=== PATIENT | female | born 1995 | race Caucasian/White ===

== ENCOUNTER 2021-07-26 09:11 | Emergency (ER) | payer OTHER ==
[2021-07-26 09:34] VITALS: BP 108/70; PULSE 88; TEMP 98; BMI 23.9
[2021-07-26] MEDS ORDERED: SODIUM CHLORIDE 1,000 ML IV STA (10:12)
[2021-07-26 10:46] LABS: BASO % 0.3 % (0-2.0); EOS % 1.2 % (0-4.5); HEMATOCRIT 49.2 % (32.4-45.2); HEMOGLOBIN 16.9 GM/dL (10.7-15.3); LYMPH % 12.6 % (8-40); MCH 30.3 pg (25.7-33.7); MCHC 34.4 g/dl (32.0-36.0); MEAN CELL VOLUME 88.1 fl (80-96); MEAN PLT VOLUME 7.5 fl (7.5-11.1); MONO % 7.9 % (3.8-10.2); PLATELET COUNT 216 10^3/uL (134-434); RBC 5.59 M/mm3 (3.60-5.2); RDW 13.2 % (11.6-15.6)
[2021-07-26 10:50] LABS: EPI CELLS >36 /uL (0-25.1); HYALINE CASTS 5 /uL (0-3.1); PH,URINE 5.5 (5.0-8.0); URINE APPEARANCE CLOUDY; URINE BACTERIA 675 /uL (0-1359); URINE BILIRUBIN NEGATIVE (NEGATIVE); URINE COLOR YELLOW; URINE GLUCOSE (UA) NEGATIVE (NEGATIVE); URINE KETONE 1+ (NEGATIVE); URINE LEUK ESTERASE TRACE (NEGATIVE); URINE NITRITE NEGATIVE (NEGATIVE); URINE PROTEIN 1+ (NEGATIVE); URINE RBC 37 /uL (0-23.9); URINE UROBILINOGEN 0.2 mg/dL (0.2-1.0); URINE WBC 52 /uL (0-25.8)
[2021-07-26 10:56] LABS: HCG,QUALITATIVE URINE Negative
[2021-07-26 11:05] LABS: CALCIUM 9.5 mg/dL (8.5-10.1)
[2021-07-26 11:06] LABS: ALBUMIN 4.9 g/dl (3.4-5.0); BLOOD UREA NITROGEN 12.4 mg/dL (7-18)
[2021-07-26 11:09] LABS: CREATININE 0.9 mg/dL (0.55-1.3)
[2021-07-26 11:11] LABS: BILIRUBIN,TOTAL 1.2 mg/dL (0.2-1); TOT PROT 8.8 g/dl (6.4-8.2)
[2021-07-26] MEDS ORDERED: DOXYCYCLINE HYCLATE 100 MG CAPSULE PO ONE ×3 (13:38→16:18)
[2021-07-26] MEDS ORDERED: KETOROLAC TROMETHAMINE 30 MG/1 ML VIAL IVPUSH ONE (15:57)
[2021-07-26] MEDS ORDERED: KETOROLAC TROMETHAMINE 30 MG/1 ML VIAL ONE (16:18)
== END 2021-07-26 16:42 | disposition home or self-care (01) ==
LOC: JER 09:11
PROC: 3E0337Z Introduction of Electrolytic and Water Balance Substance into Peripheral Vein, Percutaneous Approach (ICD-10-PCS; principal; 2021-07-26)
DX: N73.9 Female pelvic inflammatory disease, unspecified (principal)
CPT/HCPCS: 36415; 74177-TC; 80053; 81003; 84703; 85025; 87070; 87205; 87491; 87591; 99285-25; Q9967

== ENCOUNTER 2022-11-29 22:28 | Emergency (ER) | payer OTHER ==
[2022-11-29 22:36] VITALS: RESP 18; TEMP 98.6; BMI 27.9
[2022-11-30 00:03] LABS: EOS % 5.5 % (0-4.5); HEMOGLOBIN 13.9 GM/dL (10.7-15.3); LYMPH % 29.8 % (8-40); MCH 30.6 pg (25.7-33.7); MCHC 34.8 g/dl (32.0-36.0); MONO % 6.8 % (3.8-10.2); NEUT % 56.9 % (42.8-82.8); PLATELET COUNT 243 10^3/uL (134-434); RBC 4.54 M/mm3 (3.60-5.2); RDW 13.4 % (11.6-15.6); WHITE BLOOD COUNT 6.8 K/mm3 (4.0-10.0)
[2022-11-30 00:20] LABS: PH,URINE 6.5 (5.0-8.0); URINE APPEARANCE CLEAR; URINE BILIRUBIN NEGATIVE (NEGATIVE); URINE COLOR YELLOW; URINE GLUCOSE (UA) NEGATIVE (NEGATIVE); URINE KETONE NEGATIVE (NEGATIVE); URINE LEUK ESTERASE NEGATIVE (NEGATIVE); URINE NITRITE NEGATIVE (NEGATIVE); URINE PROTEIN NEGATIVE (NEGATIVE); URINE UROBILINOGEN 0.2 mg/dL (0.2-1.0)
[2022-11-30 00:30] LABS: POTASSIUM 3.5 mmol/L (3.5-5.1)
[2022-11-30 00:32] LABS: CALCIUM 8.6 mg/dL (8.5-10.1)
[2022-11-30 00:33] LABS: ALBUMIN 3.4 g/dl (3.4-5.0); BLOOD UREA NITROGEN 6.4 mg/dL (7-18)
[2022-11-30 00:36] LABS: CREATININE 0.4 mg/dL (0.55-1.3)
[2022-11-30 00:38] LABS: BILIRUBIN,TOTAL 0.3 mg/dL (0.2-1); TOT PROT 6.8 g/dl (6.4-8.2)
[2022-11-30] MEDS ORDERED: AZITHROMYCIN 500 MG TABLET PO ONE (04:09)
[2022-11-30 04:11] VITALS: BP 98/62; PULSE 78
[2022-11-30] MEDS ORDERED: AZITHROMYCIN 500 MG TABLET ONE (04:29)
[2022-11-30] MEDS ORDERED: cefTRIAXone SODIUM 1 GM VIAL ONE (04:29)
== END 2022-11-30 04:57 | disposition home or self-care (01) ==
LOC: JER 22:28
DX: O26.891 Other specified pregnancy related conditions, first trimester (principal); R10.30 Lower abdominal pain, unspecified; N89.8 Other specified noninflammatory disorders of vagina; R10.2 Pelvic and perineal pain; M25.551 Pain in right hip; Z3A.13 13 weeks gestation of pregnancy
CPT/HCPCS: 36415; 76830-TC; 80053; 81003; 84702; 85025; 87081; 87086; 87491; 87591; 99284-25

== ENCOUNTER 2023-06-01 05:40 | Inpatient (IN) | payer OTHER ==
[2023-06-01] MEDS: ELECTROLYTE-148 SOLN 1,000 ML IV SCH (06:30)
[2023-06-01 06:35] LABS: BASO % 0.5 % (0-2.0); EOS % 2.7 % (0-4.5); HEMATOCRIT 40.4 % (32.4-45.2); HEMOGLOBIN 13.5 GM/dL (10.7-15.3); LYMPH % 23.6 % (8-40); MCH 29.2 pg (25.7-33.7); MCHC 33.3 g/dl (32.0-36.0); MEAN CELL VOLUME 87.7 fl (80-96); MEAN PLT VOLUME 8.3 fl (7.5-11.1); MONO % 9.8 % (3.8-10.2); NEUT % 63.4 % (42.8-82.8); PLATELET COUNT 250 10^3/uL (134-434); RBC 4.61 M/mm3 (3.60-5.2); RDW 13.9 % (11.6-15.6); WHITE BLOOD COUNT 10.3 K/mm3 (4.0-10.0)
[2023-06-01 06:39] VITALS: BMI 34.5
[2023-06-01 06:51] LABS: INR 1.01 (0.83-1.09); PROTHROMBIN TIME (PATIENT) 11.7 SEC (9.7-13.0)
[2023-06-01 06:54] LABS: ACTIVATED PTT 28.5 SECONDS (25.2-36.5)
[2023-06-01] MEDS ORDERED: OXYTOCIN 20 UNITS in 0.9% NS 20 UNIT/1,000 ML INFUS.BAG IV ONE (07:02)
[2023-06-01] MEDS: OXYTOCIN 20 UNITS in 0.9% NS 20 UNIT/1,000 ML INFUS.BAG IV SCH (07:20)
[2023-06-01 07:24] LABS: POTASSIUM 4.2 mmol/L (3.5-5.1)
[2023-06-01 07:25] LABS: CALCIUM 8.8 mg/dL (8.5-10.1)
[2023-06-01 07:29] LABS: CREATININE 0.6 mg/dL (0.55-1.3)
[2023-06-01] MEDS: MISOPROSTOL 200 MCG TABLET PR STA (07:30)
[2023-06-01] MEDS ORDERED: MISOPROSTOL 200 MCG TABLET ONE (07:35)
[2023-06-01] MEDS ORDERED: oxyCODONE HCL 5 MG TABLET ONE (07:37)
[2023-06-01] MEDS: oxyCODONE HCL 5 MG TABLET PO PRN (07:39)
[2023-06-01] MEDS: METHYLERGONOVINE MALEATE 0.2 MG/1 ML AMP IM PRN (07:42)
[2023-06-01] MEDS ORDERED: ACETAMINOPHEN 325 MG TABLET (FP) PO PRN (08:21)
[2023-06-01] MEDS ORDERED: BENZOCAINE 28 GM HEMORRHOIDAL OINTMENT TP PRN (08:21)
[2023-06-01] MEDS ORDERED: WITCH HAZEL 50% (TUCKS) 40 PAD/JAR PAD TP PRN (08:21)
[2023-06-01] MEDS ORDERED: BENZOCAINE 20% 57 GM BOTTLE TP PRN (08:21)
[2023-06-01] MEDS ORDERED: BISACODYL 10 MG SUPP.RECT RC PRN (08:21)
[2023-06-01] MEDS: PRENATAL VITAMINS W/ FOLIC ACID TABLET (FP) PO SCH (12:34)
[2023-06-01] MEDS: IBUPROFEN 600 MG TABLET (FP) PO PRN (12:34)
[2023-06-01] MEDS: FERROUS SO4 325 MG TABLET (FP) PO SCH (12:34)
[2023-06-02 07:13] LABS: BASO % 0.6 % (0-2.0); EOS % 1.9 % (0-4.5); HEMATOCRIT 36.8 % (32.4-45.2); HEMOGLOBIN 12.4 GM/dL (10.7-15.3); LYMPH % 21.2 % (8-40); MCH 29.2 pg (25.7-33.7); MCHC 33.6 g/dl (32.0-36.0); MEAN CELL VOLUME 86.9 fl (80-96); MEAN PLT VOLUME 8.1 fl (7.5-11.1); MONO % 7.2 % (3.8-10.2); NEUT % 69.1 % (42.8-82.8); PLATELET COUNT 213 10^3/uL (134-434); RBC 4.24 M/mm3 (3.60-5.2); RDW 13.8 % (11.6-15.6); WHITE BLOOD COUNT 10.3 K/mm3 (4.0-10.0)
[2023-06-02 21:14] VITALS: TEMP 98.3
[2023-06-02] MEDS ORDERED: SENNOSIDES/DOCUSATE COMBO (SENNA PLUS) TABLET (UD) PO PRN (22:00)
[2023-06-03 08:45] VITALS: BP 112/65; PULSE 109; RESP 18
== END 2023-06-03 14:50 | disposition home or self-care (01) | DRG 560 ==
LOC: JLDR 05:40 → J3W 10:15
PROVIDERS: ADMIT Obstetrics & Gynecology; ATTEND Obstetrics & Gynecology
PROC: 10E0XZZ Delivery of Products of Conception, External Approach (ICD-10-PCS; principal; 2023-06-01)
PROC: 0HQ9XZZ Repair Perineum Skin, External Approach (ICD-10-PCS; 2023-06-01)
DX: O70.0 First degree perineal laceration during delivery (principal); Z3A.38 38 weeks gestation of pregnancy; Z37.0 Single live birth
CPT/HCPCS: 36415; 80048; 85025; 85610; 85730; 86780; 86850; 86900; 86901

== ENCOUNTER 2023-08-10 21:32 | Emergency (ER) | payer OTHER ==
[2023-08-10 21:42] VITALS: BP 104/65; PULSE 82; RESP 20; TEMP 98.6; BMI 30.2
[2023-08-10] MEDS ORDERED: AMPICILLIN NA/SULBACTAM NA 3 GM/100 ML BAG IVPB ONE (22:47)
[2023-08-10 23:20] LABS: BASO % 0.5 % (0-2.0); EOS % 2.8 % (0-4.5); HEMATOCRIT 40.4 % (32.4-45.2); HEMOGLOBIN 13.9 GM/dL (10.7-15.3); LYMPH % 22.1 % (8-40); MCH 29.4 pg (25.7-33.7); MCHC 34.4 g/dl (32.0-36.0); MEAN CELL VOLUME 85.6 fl (80-96); MEAN PLT VOLUME 6.9 fl (7.5-11.1); MONO % 4.8 % (3.8-10.2); NEUT % 69.8 % (42.8-82.8); PLATELET COUNT 284 10^3/uL (134-434); RBC 4.73 M/mm3 (3.60-5.2); RDW 14.7 % (11.6-15.6); WHITE BLOOD COUNT 9.4 K/mm3 (4.0-10.0)
[2023-08-10] MEDS: AMPICILLIN NA/SULBACTAM NA 3 GM in DEXTROSE 5%-WATER 100 ML IVPB ONE (23:35)
[2023-08-10 23:38] LABS: CALCIUM 9.1 mg/dL (8.5-10.1)
[2023-08-10 23:39] LABS: ALBUMIN 4.1 g/dl (3.4-5.0); BLOOD UREA NITROGEN 9.4 mg/dL (7-18)
[2023-08-10 23:42] LABS: CREATININE 0.4 mg/dL (0.55-1.3)
[2023-08-10 23:43] LABS: BILIRUBIN,TOTAL 0.8 mg/dL (0.2-1); TOT PROT 7.9 g/dl (6.4-8.2)
== END 2023-08-11 00:37 | disposition home or self-care (01) ==
LOC: JER 21:32
DX: L02.415 Cutaneous abscess of right lower limb (principal); M79.89 Other specified soft tissue disorders
CPT/HCPCS: 36415; 80053; 84703; 85025; 99284-25